=== PATIENT | male | born 1980 ===

== ENCOUNTER 2023-05-23 11:13 | Emergency (ER) | payer SELFPAY ==
[2023-05-23 11:21] VITALS: BP 123/80
--- NOTE | 2023-05-23 12:30 | ED.GENMED ---
History of Present Illness
General
Chief Complaint: Musculo-Skeletal Complaint
Time Seen by Provider: 05/23/23 12:26
Travel History
Have you had any contact with someone who has COVID-19?: No
Do you have any symptoms of coronavirus? Fever > 100 degrees, chills, cough, shortness of breath, sore throat, loss of taste or smell, muscle aches, or headache?: No
History of Present Illness
History of Present Illness:
HPI: Patient presents due to foot/heel pain after kicking a box bring with the back of his heel 5 days ago. He went to urgent care where he reports unremarkable evaluation and was to follow-up with PMD. He was concerned because of ongoing pain and
gait dysfunction so he came in here instead.
EXAM:
GENERAL: Well appearing in no distress
HEENT: Moist oral mucosa
NEUROLOGIC: Excellent strength all extremities, no coordination deficits
PSYCHIATRIC: Appropriate mental status, normal insight and judgement
EXTREMITIES: Nontender, no edema, moves all extremities equally, however there is decreased active range of motion at the left ankle and there is exquisite point tenderness at the insertion site of the Achilles into the calcaneus but the Achilles
function is intact
SKIN: No rash, no lesions
ED COURSE:
12:30 PM: I initially evaluated patient
NUMBER AND COMPLEXITY OF PROBLEMS ADDRESSED AT THE ENCOUNTER
� Chronic conditions affecting care: Has had knee surgery in the past
� Acute Exacerbation and/or Progression of Chronic Illness: This is an acute problem
� Differential Diagnosis includes: Achilles tendon rupture, tendinitis, calcaneal fracture, muscle strain
AMOUNT AND/OR COMPLEXITY OF DATA TO BE REVIEWED AND ANALYZED
� I performed an independent evaluation of and my interpretation is:
EKG:
CT:
X-rays: I personally viewed x-ray and agree with radiologist patient that there is no acute fracture
Laboratory Studies:
Other:
� Review of other/old records: No old records available for review
� Clinical information was obtained by an independent historian:
� Prescriptions/Medications Considered but not given: The patient has been taking Tylenol but I suggest that he try NSAIDs instead
� Further testing considered but not performed:
RISK OF COMPLICATIONS AND/OR MORBIDITY OR MORTALITY OF PATIENT MANAGEMENT
� Social determinants of health affecting care: Lives at home
� Discussion with other providers: None needed
� Escalation of care including admission/observation vs risk of discharge considered: X-ray imaging unremarkable, Achilles is intact, however there is rather significant tenderness at the insertion point of the Achilles.
Recommend Ortho follow-up.
Phy Exam
Physical Exam
Physical Exam:
See HPI
Course
Orders/Labs/Results
Orders:
Orders
05/23/23 11:24
Ankle, left 3 view CR [CR Ankle - Left Min 3 Views ] Urgent
Comment:
Reason For Exam: left ankle pain kicked [employer] on sunday
05/23/23 12:39
boot [Ortho Boot Left- Treatment] ONCE
Short or tall?: Short
Vital Signs
Initial and Last Documented VS:
Initial Vital Signs
Temp Pulse Resp BP Pulse Ox
98.0 F 88 16 123/80 98
05/23/23 11:21 05/23/23 11:21 05/23/23 11:21 05/23/23 11:21 05/23/23 11:21
Last Documented Vital Signs
Temp Pulse Resp BP Pulse Ox
98.0 F 88 16 123/80 98
05/23/23 11:21 05/23/23 11:21 05/23/23 11:21 05/23/23 11:21 05/23/23 11:21
*Critical Care Note
Total Time (30-74mins, 75-104mins- exclusive of procedures): Not Applicable
ED Attending Note
-
Portions of this chart may have been created with voice recognition software.� Occasional wrong word or��sound alike� substitutions may have occurred due to the inherent limitations of voice recognition software.
Discharge Plan
Departure
Patient Disposition: Home (Routine Discharge)
Date of Disposition: 05/23/23
Time of Disposition: 13:01
Patient with high blood pressure during this ER visit?: Yes
Discharge Problem:
Contusion
Instructions: Contusion (DC)
Referrals:
Nitish Martinez MD [Active] - Follow up in 2-3 days
Activity Restrictions/Additional Instructions:
I have given you the contact information for a local orthopedist. I recommend that you follow-up with him. Return here if worse. I recommend 3-4 [id number] ibuprofen (Motrin) every 8 hours with food for a few days�she can take this in
addition to Tylenol. Return here if worse.
Interventions
Interventions:
*ED COVID-19 Vaccine History Last Done: 05/23/23 11:21
== END 2023-05-23 14:05 | disposition home or self-care (01) ==
LOC: EMR 11:13
PROVIDERS: EMERGENCY PHYSICIAN Emergency Medicine
DX: S90.02XA Contusion of left ankle, initial encounter (principal); W22.8XXA Striking against or struck by other objects, initial encounter; R03.0 Elevated blood-pressure reading, without diagnosis of hypertension
CPT/HCPCS: 99283; 73610